=== PATIENT | male | born 1965 | race Caucasian/White ===

== ENCOUNTER 2018-10-11 21:08 | Emergency (ER) | payer SELFPAY, MEDICAID ==
[2018-10-11] MEDS: IBUPROFEN 600 MG TAB PO (23:51)
== END 2018-10-12 01:22 | disposition home or self-care (01) ==
LOC: FTE 10-12 01:22
DX: S90.31XA Contusion of right foot, initial encounter (principal); F17.210 Nicotine dependence, cigarettes, uncomplicated; W20.8XXA Other cause of strike by thrown, projected or falling object, initial encounter; Y92.9 Unspecified place or not applicable
CPT/HCPCS: 73630; 99283